=== PATIENT | male | born 1965 | race Hispanic/Latino ===

== ENCOUNTER → 2023-04-27 | Outpatient (CLI) | payer SELFPAY ==
[2023-04-27 12:39] LABS: CHOLESTEROL 250 mg/dL (<200); HDL CHOLESTEROL 43 mg/dL (29-71); LDL DIRECT 170 mg/dL (0-99); TRIGLYCERIDES 181 mg/dL (30-200)
[2023-04-27 12:47] LABS: HEMOGLOBIN A1C 11.3 % (4.0-6.0)
== END | disposition home or self-care (01) ==
LOC: LAB 09:57
PROVIDERS: ATTEND Student in an Organized Health Care Education/Training Program
DX: I73.9 Peripheral vascular disease, unspecified (principal)
CPT/HCPCS: 36415; 80061; 83036